=== PATIENT | male | born 1945 | race African-American/Black ===

== ENCOUNTER → 2016-12-24 | Outpatient (CLI) | payer MEDICARE, OTHER ==
[2014-04-19 15:00] VITALS: BP 124/71
[~2016-12-24] MED LIST: ALLO100T PO; AMLO10TA2 PO; ASPI-482 PO; ASPI-630 PO; COLC0.6T34 PO; GEMF600T3 PO; HYDR-2762 PO; HYDR-971 PO; INSU100C4 SQ; INSU100V SQ; INSU100V13 SQ; LISI2.5T PO; LOSA1TAB16 PO; Oxycodone Hcl/Acetaminophen PO; PRAV40TA2 PO; RIFA550T4 PO; SENN8.6T99 PO; VARD20TA2 PO; VARE1TAB21 PO
[2016-12-24 09:14] LABS: BASO % 1 % (0-3); EOS % 6 % (0-3); HEMATOCRIT 40.4 % (39.0-53.0); LYMPH # 0.9 x10^3/uL (1.0-4.8); LYMPH % 36 % (24-48); MEAN CORPUSCULAR HEMOGLOBIN 29 pg (25-35); MEAN CORPUSCULAR HGB CONC 35 g/dL (31-37); MEAN CORPUSCULAR VOLUME 84 fL (79-100); MONO % 16 % (0-9); NEUT % 41 % (31-73); PLATELET COUNT 322 x10^3/uL (140-400); RED CELL DISTRIBUTION WIDTH 13.7 % (11.5-14.5); WHITE BLOOD COUNT 2.6 x10^3/uL (4.0-11.0)
[2016-12-24 09:21] LABS: ALBUMIN 3.7 g/dL (3.4-5.0); CALCIUM 8.6 mg/dL (8.5-10.1); CREATININE 1.9 mg/dL (0.7-1.3); GFR 42.6; POTASSIUM 3.7 mmol/L (3.5-5.1)
[2016-12-24 09:39] LABS: INR 1.1 (0.8-1.1); PROTHROMBIN TIME PATIENT 13.3 SEC (11.7-14.0)
[2016-12-24 10:04] LABS: BILIRUBIN,URINE SMALL (NEG); GLUCOSE,URINE NEGATIVE (NEG); NITRITE,URINE NEGATIVE (NEG); PH,URINE 5.5; PROTEIN,URINE 30 mg/dL (NEG-TRACE)
[2016-12-24 10:10] LABS: BACTERIA,URINE FEW /HPF (0-FEW); RBC,URINE OCC /HPF (0-2); SQUAMOUS EPITHELIAL CELL,UR MANY /LPF
--- NOTE | 2016-12-24 13:19 | EKG ---
[facility] [address] [place] [address] Test Date: 2016-12-24 Test Time: 13:12:47 Pat Name: DAVID LOPEZ Department: Room: Gender: M [employer] Mk1 Operator: RUFINO : 1945 Requested By: JONO MOE Order Number: [id number] Reading MD: Measurements Intervals [place] Rate: 58 P: 50 PA: 166 QRS: -40 QRSD: 84 T: 56 QT: 426 QTc: 422 Interpretive Statements SINUS RHYTHM ABNORMAL LEFT AXIS DEVIATION LEFT ANTERIOR FASCICULAR BLOCK ABNORMAL ECG RI6.01 Compared to ECG 08/12/2013 07:58:27 Left-axis deviation now present Left anterior fascicular block now present Right-axis deviation no longer present
--- NOTE | 2016-12-24 18:00 | RAD ---
Chest, 2 views, 12/24/2016: History: Preop evaluation for hip surgery Comparison is made to a study from 08/12/2013. The heart size and pulmonary vascularity are normal. There is calcific plaquing of the aorta. No pulmonary infiltrates are seen. There is no evidence of pleural fluid. IMPRESSION: No acute cardiopulmonary abnormality is detected.
== END | disposition home or self-care (01) ==
LOC: SURGPAT 15:35
PROVIDERS: ATTEND Orthopaedic Surgery
DX: Z01.818 Encounter for other preprocedural examination (principal); E11.9 Type 2 diabetes mellitus without complications; I10 Essential (primary) hypertension
CPT/HCPCS: 36415; 71020; 80048; 81001; 82040; 85027; 85610; 85651; 85730; 87641; 93005

== ENCOUNTER 2017-01-08 08:54 | Inpatient (IN) | payer MEDICARE, OTHER ==
[2017-01-08] VITALS (8 sets, daily range): BP systolic 139–171; BP diastolic 68–96
[~2017-01-08] VITALS: Ht 182.9 cm; Wt 102.1 kg
[~2017-01-08 08:54] MED LIST changes: +CELECOXIB 200 MG CAPSULE. PO PRN; +HYDROcodone/APAP 7.5/325MG 1 TAB TABLET PO PRN; +HYDROmorphone 2 MG/ML VIAL IV PRN; +LIDOCAINE 1% 1 ML SYRINGE. ID PRN; +MORPHINE SULFATE 4 MG/ML DISP.SYRIN. IV PRN; +MORPHINE SULFATE 5 MG, KETOROLAC TROMETHAMINE 30 MG, ROPIVacaine 0.5% PF 60 ML, EPINEPH... INT ART ONE; +ONDANSETRON PF 4 MG/2 ML VIAL. IV PRN; +PROCHLORPERAZINE 10 MG/2 ML VIAL. IV PRN; +TRANEXAMIC ACID 1,000 MG in IV NS 50ML -- 1ST BAG INJ ONE; +TRANEXAMIC ACID 1,000 MG in IV NS 50ML -- 2ND BAG INJ ONE; +fentaNYL PF VIAL 100 MCG/2 ML VIAL IV PRN
[2017-01-08] MEDS: IV RINGERS,LACTATED 1000ML 1,000 ML IV SCH ×2 (09:52→15:19)
[2017-01-08 10:20] LABS: INR 1.2 (0.8-1.1); PROTHROMBIN TIME PATIENT 14.1 SEC (11.7-14.0)
[2017-01-08] MEDS ORDERED: ROCURONIUM 50 MG/5 ML VIAL. ONE (11:11)
[2017-01-08] MEDS ORDERED: fentaNYL PF VIAL 250 MCG/5 ML VIAL ONE (11:11)
[2017-01-08] MEDS ORDERED: DEXAMETHASONE SOD PHOS 20 MG/5 ML VIAL. ONE (12:51)
[2017-01-08] MEDS ORDERED: PROPOFOL 20 ML IV ONE (12:51)
[2017-01-08] MEDS ORDERED: LIDOCAINE 2% PF Vial for OR 5 ML VIAL. ONE (12:51)
[2017-01-08] MEDS ORDERED: ONDANSETRON PF 4 MG/2 ML VIAL. ONE ×2 (12:52→13:54)
[2017-01-08] MEDS ORDERED: SEVOFLURANE > 120 MINUTES. IH ONE (12:52)
[2017-01-08] MEDS ORDERED: fentaNYL PF VIAL 100 MCG/2 ML VIAL ONE ×2 (13:27→14:40)
[2017-01-08] MEDS ORDERED: GLYCOPYRROLATE 1 MG/5 ML VIAL. ONE (13:46)
[2017-01-08] MEDS ORDERED: NEOSTIGMINE 10 MG/10 ML VIAL. ONE (13:46)
[2017-01-08] MEDS: fentaNYL PF VIAL 100 MCG/2 ML VIAL IV PRN ×2 (15:00→15:16)
[2017-01-08] MEDS ORDERED: ZOLPIDEM 5 MG TABLET. PO PRN (15:15)
[2017-01-08] MEDS ORDERED: DEXTROSE 50% 25 GM / 50ML DISP.SYRIN. IV PRN (15:15)
[2017-01-08] MEDS ORDERED: MORPHINE SULFATE 4 MG/ML DISP.SYRIN. IV PRN ×2 (15:15)
[2017-01-08] MEDS ORDERED: PROCHLORPERAZINE 10 MG/2 ML VIAL. IV PRN (15:15)
[2017-01-08] MEDS ORDERED: PROCHLORPERAZINE 5 MG TABLET. PO PRN (15:15)
[2017-01-08] MEDS ORDERED: fentaNYL PF VIAL 100 MCG/2 ML VIAL IV PRN ×2 (15:15)
[2017-01-08] MEDS ORDERED: traMADol 50 MG TABLET PO PRN ×2 (15:15)
[2017-01-08] MEDS ORDERED: diphenhydrAMINE 50 MG/ML VIAL IV PRN (15:15)
[2017-01-08] MEDS ORDERED: ACETAMINOPHEN 325 MG TABLET. PO PRN (15:15)
[2017-01-08] MEDS ORDERED: 0.9 % SODIUM CHLORIDE 10 ML DISP.SYRIN. IV PRN (15:15)
[2017-01-08] MEDS ORDERED: CALCIUM CARBONATE 500 MG TAB.CHEW PO PRN (15:15)
[2017-01-08] MEDS ORDERED: HYDROcodone/APAP 10/325 1 TAB TABLET PO PRN (15:15)
--- NOTE | 2017-01-08 15:25 | PDOC ---
BRIEF OPERATIVE NOTE Date: Jan 08, 2017 Pre-Op Diagnosis djd right hip Post-Op Diagnosis right hip djd Procedure Performed right total hip arthroplasty Surgeon Lesli Foy Anesthesia Type: General Blood Loss 150cc Specimens Obtained femoral head to pathology Findings above Complications none JONO MOE MD Jan 08, 2017 15:25
[2017-01-08] MEDS ORDERED: WARFARIN 7.5 MG TABLET. PO ONE (16:00)
--- NOTE | 2017-01-08 16:40 | RAD ---
AP and lateral right hip radiograph 01/08/2017 Clinical history: Post right hip replacement. Portable AP digital radiograph of the lower pelvis to include both hips and and a crosstable lateral digital radiograph of the right hip were obtained. Comparison study is dated 11/30/2016. Surgical clips overlie the lower pelvis, unchanged. The patient is status post right BJORN. The prosthetic components are intact. No fracture or dislocation is seen. Moderate to severe degenerative changes are seen involving the left hip. Impression: Post right BJORN. No acute osseous abnormality is seen.
[2017-01-08] MEDS: FERROUS SULFATE 325 MG TABLET. PO SCH (18:04)
[2017-01-08] MEDS: oxyCODONE/APAP 5/325 1 TAB TABLET PO PRN (18:15)
[2017-01-08] MEDS: INSULIN ASPART 300 UNITS/3 ML INSULN.PEN SQ SCH (18:52)
[2017-01-08] MEDS: ATORVASTATIN CALCIUM 10 MG TABLET. PO SCH (21:17)
[2017-01-08] MEDS: rifAXIMin 550 MG TABLET PO SCH (21:17)
[2017-01-08] MEDS: CELECOXIB 200 MG CAPSULE. PO SCH (21:17)
[2017-01-08] MEDS: INSULIN DETEMIR 300 UNITS/3 ML INSULN.PEN. SQ SCH (21:20)
[2017-01-08] MEDS: IV DEXTROSE 5 %-0.45 % NACL 1,000 ML IV SCH (21:28)
[2017-01-08] MEDS: HYDROcodone/APAP 7.5/325MG 1 TAB TABLET PO PRN (23:18)
[2017-01-09 02:51] VITALS: BP 136/80
[2017-01-09] MEDS: IV DEXTROSE 5 %-0.45 % NACL 1,000 ML IV SCH ×2 (04:00→10:48)
--- NOTE | 2017-01-09 04:11 | ACF ---
Admission Forms Criteria PAIN MANAGEMENT GR Clinical Indications for Admission to Inpatient Care (Place 'X' for any and all applicable criteria): Hospital admission is needed for appropriate care of the patient because of 1 or more of the following are present (1)(2)(3)(4)(5): [X]I. Severe pain requiring acute inpatient management as indicated by 1 or more of the following (2)(5)(10): [X]a) Continuous or frequent (eg, every 2 to 4 hours) parenteral analgesics required [A] [ ]b) Necessity (ie, alternative approaches not effective) for analgesic regimen that can only be performed or initiated in inpatient setting [ ]II. Pain causing debilitation to the point of inability to function or be supported at any other level of care [ ]III. Severe side effects from pain medications as indicated by ANY ONE of the following (12)(13)(14)(15): [ ]a) Uncontrollable seizures [ ]b) Cardiac arrhythmias of immediate concern [ ]c) Dehydration that is severe or persistent [ ]d) Vomiting that is severe or persistent [ ]e) Altered mental status that is severe or persistent [ ]f) Obstipation with inadequate GI function to maintain nutrition The original [employer] content created by [employer] has been revised. The portions of the content which have been revised are identified through the use of italic text or in bold, and [employer] has neither reviewed nor approved the modified material. All other unmodified content is copyright [employer]. Please see references footnoted in the original [employer] edition 2016 Admission Criteria Met?: Yes BALAJI AHN Jan 09, 2017 04:11
[2017-01-09] MEDS: oxyCODONE/APAP 7.5/325 1 TAB TABLET PO PRN ×3 (04:29→20:43)
[2017-01-09 04:55] LABS: HEMATOCRIT 32.9 % (39.0-53.0); HEMOGLOBIN 11.1 g/dL (13.0-17.5)
[2017-01-09 05:19] LABS: INR 1.3 (0.8-1.1)
[2017-01-09] MEDS ORDERED: MAGNESIUM HYDROXIDE 2,400 MG/30 ML ORAL.SUSP. PO PRN (06:00)
[2017-01-09 06:22] VITALS: BP 135/74
[2017-01-09] MEDS: INSULIN ASPART 300 UNITS/3 ML INSULN.PEN SQ SCH ×3 (07:36→17:07)
[2017-01-09] MEDS: COLCHICINE 0.6 MG TABLET PO SCH (07:39)
[2017-01-09] MEDS: FERROUS SULFATE 325 MG TABLET. PO SCH ×2 (07:39→17:04)
[2017-01-09] MEDS: CELECOXIB 200 MG CAPSULE. PO SCH ×2 (07:39→20:42)
[2017-01-09] MEDS: rifAXIMin 550 MG TABLET PO SCH ×2 (07:40→21:00)
[2017-01-09] MEDS: SENNOSIDES/DOCUSATE 8.6/50MG TABLET. PO SCH (08:27)
[2017-01-09] MEDS: ASPIRIN ENTERIC COATED 81 MG TABLET.DR. PO SCH (08:27)
[2017-01-09] MEDS: MULTIVITAMIN with MINERAL TABLET. PO SCH (08:27)
[2017-01-09] MEDS: hydroCHLOROthiazide 12.5 MG CAPSULE PO SCH ×2 (08:27→17:04)
[2017-01-09] MEDS: ALLOPURINOL 100 MG TABLET. PO SCH (08:27)
[2017-01-09] MEDS: oxyCODONE/APAP 5/325 1 TAB TABLET PO PRN (08:29)
[2017-01-09] MEDS: LOSARTAN POTASSIUM 50 MG TABLET. PO SCH (09:00)
[2017-01-09 11:44] VITALS: BP 110/64
[2017-01-09] MEDS ORDERED: WARFARIN 5 MG TABLET. PO ONE (16:00)
[2017-01-09] MEDS ORDERED: BISACODYL 10 MG SUPP.RECT. PR PRN (16:00)
[2017-01-09 18:43] VITALS: BP 116/67
--- NOTE | 2017-01-09 19:38 | PDOC ---
PROGRESS NOTES Subjective Subjective Problems overnight: Very pleased with his pain relief and ability to ambulate really no significant current complaints pain well-controlled Objective Vital Signs Vital Signs Date Time Temp Pulse Resp B/P (MAP) Pulse Ox O2 Delivery O2 Flow Rate FiO2 01/09/17 18:43 98.9 79 20 116/67 (83) 97 Room Air 98.9 01/08/17 14:37 8 Physical Exam Dressing clean dry intact Hemovac drain intact leg lengths equal distal neurovascular status intact Labs Laboratory Tests Test 01/08/17 09:41 01/08/17 09:43 01/08/17 14:50 01/08/17 18:50 Glucose (Fingerstick) 138 mg/dL (70-99) 187 mg/dL (70-99) 196 mg/dL (70-99) Prothrombin Time 14.1 SEC (11.7-14.0) Prothromb Time International Ratio 1.2 (0.8-1.1) Activated Partial Thromboplast Time 30 SEC (24-38) Test 01/08/17 21:00 01/09/17 02:42 01/09/17 04:15 01/09/17 06:19 Glucose (Fingerstick) 148 mg/dL (70-99) 145 mg/dL (70-99) 138 mg/dL (70-99) Hemoglobin 11.1 g/dL (13.0-17.5) Hematocrit 32.9 % (39.0-53.0) Mean Corpuscular Hemoglobin Concent 34 g/dL (31-37) Prothrombin Time 15.0 SEC (11.7-14.0) Prothromb Time International Ratio 1.3 (0.8-1.1) Test 01/09/17 11:29 01/09/17 16:41 Glucose (Fingerstick) 133 mg/dL (70-99) 142 mg/dL (70-99) Laboratory Tests Test 01/08/17 21:00 01/09/17 02:42 01/09/17 04:15 01/09/17 06:19 Glucose (Fingerstick) 148 mg/dL (70-99) 145 mg/dL (70-99) 138 mg/dL (70-99) Hemoglobin 11.1 g/dL (13.0-17.5) Hematocrit 32.9 % (39.0-53.0) Mean Corpuscular Hemoglobin Concent 34 g/dL (31-37) Prothrombin Time 15.0 SEC (11.7-14.0) Prothromb Time International Ratio 1.3 (0.8-1.1) Test 01/09/17 11:29 01/09/17 16:41 Glucose (Fingerstick) 133 mg/dL (70-99) 142 mg/dL (70-99) Imaging Intraoperative and postop views show excellent positioning of a total hip arthroplasty Assessment Assessment POD# [1], S/P [right total hip arthroplasty] Problems: Plan Plan of Care Continue weightbearing as tolerated No hip precautions due to anterior approach Coumadin anticoagulation Home when medically stable JONO MOE MD Jan 09, 2017 19:38
[2017-01-09] MEDS: ATORVASTATIN CALCIUM 10 MG TABLET. PO SCH (20:42)
[2017-01-09] MEDS: INSULIN DETEMIR 300 UNITS/3 ML INSULN.PEN. SQ SCH (21:00)
--- NOTE | 2017-01-09 22:09 | HP ---
ADMIT DATE: 01/08/2017 CHIEF COMPLAINT: Right hip pain. HISTORY OF PRESENT ILLNESS: The patient is a 71-year-old male who had a fall off of roof in the latter part of 2013, began to have severe hip pain following that and has had progressive pain since our last visit about a year ago where he had significant degenerative changes present in the hip. He got limited decreasing relief from an intra-articular injection under fluoroscopy and wishes to proceed at this time with more definitive treatment of his symptoms as he is very limited in his activities of daily living, has severe pain on startup, inability to climb stairs and limited in his other activities. PAST MEDICAL HISTORY: Significant for hypertension, hypercholesterolemia, gout, diabetes mellitus. PAST SURGICAL HISTORY: Significant for a right kidney removal in 2010, prostatectomy in 2009. FAMILY HISTORY: Denies any significant family history. SOCIAL HISTORY: He is a former smoker, quit within about the past 6-12 months. Denies alcohol or drug use. MEDICATIONS: List is reviewed. ALLERGIES: He has no known drug allergies. REVIEW OF SYSTEMS: Denies any recent chest pain, shortness of breath, constitutional symptoms. PHYSICAL EXAMINATION: GENERAL: This is a pleasant, cooperative 71-year-old male, alert and oriented, in no acute distress. HEENT: Atraumatic, normocephalic. HEART: Regular rate and rhythm. LUNGS: Clear to auscultation bilaterally. ABDOMEN: Benign. EXTREMITIES: Examination of the right hip reveals decreased range of motion in all planes with pain on any extremes of range of motion attempted. IMAGING DATA: X-rays reveal severe degenerative changes present in the left hip with complete loss of his joint space. IMPRESSION: Right hip degenerative joint disease. TREATMENT PLAN: Based on his severe pain and limitations, he would like to proceed with total hip arthroplasty, having reviewed both in clinic and today. The risks, benefits, postoperative course of the procedure including the possibility of premature wear or loosening, nerve or blood vessel damage, leg length inequality, instability, infection, medical or other anesthetic complications among others. All his questions were answered. He will proceed today with total hip arthroplasty with [facility] to admission to follow. JONO MOE MD DR: JAKE/ruby JOB#: [id number] / [id number]
[2017-01-10] MEDS: IV DEXTROSE 5 %-0.45 % NACL 1,000 ML IV SCH
--- NOTE | 2017-01-10 01:53 | OP ---
DATE OF SURGERY: 01/08/2017 PREOPERATIVE DIAGNOSIS: Degenerative joint disease of right hip. POSTOPERATIVE DIAGNOSIS: Degenerative joint disease of right hip. PROCEDURE: Right total hip arthroplasty. SURGEON: Sotero Ballesteros M.D. MEDICAL APPOINTMENT SCHEDULER: Danii. ESTIMATED BLOOD LOSS: About 150 mL. COMPLICATIONS: None. OPERATIVE INDICATIONS: The patient is a 71-year-old male with severe pain and documented progressive degenerative changes, limitations of his activities of daily living as discussed in his preoperative history and physical and clinic notes. I had gone over with him previously the risks, benefits, postoperative course of the procedure including the possibility of nerve or blood vessel damage, leg length inequality, instability, infection, medical or other anesthetic complications among others. All his questions were answered. Consent was obtained and he agrees to proceed with operative evaluation and treatment. DESCRIPTION OF PROCEDURE: The patient was identified, procedure verified, patient placed in the supine position on the operating table. After adequate amounts of general endotracheal anesthesia were administered, he was placed in traction boots on the Linden fracture table and positioned and the right hip prepped and draped in standard sterile fashion. After timeout was performed, the patient and procedure identified and verified. Fluoroscopy was used to establish initial leg lengths with reference to the pubic rami. An incision was then made from just distal and lateral to the anterior superior iliac spine along the tensor fascia kay. The tensor fascia kay fascia was first divided and the tensor fascia muscle brought laterally exploiting the interval between the rectus femoris. The Aquamantys device was used to coagulate the circumflex vessels and the hip capsule was split in a T-fashion. Femoral neck cut was made with a reference cutting guide with a size 3 reference broach as templated. The femoral neck cut was augmented by a napkin ring type cut to aid in removal of the femoral head; however, the femoral head was quite tight and required splitting it to remove it in 2 halves. The acetabulum was then exposed. The contents of the fovea and the labrum were excised to allow good exposure. Successive size reaming was carried out up to a size 55 under fluoroscopic guidance and excellent bleeding bony surfaces of the acetabular wall were achieved. Thorough irrigation carried out with normal saline solution and a size 56 cluster hole acetabular component of [employer]hew hemispherical StikTite coated shell was placed in proper inclination and version per fluoroscopic guidance. A single superior screw was placed with excellent bite and a 40 mm highly crosslinked polyethylene standard liner was impacted into place. Attention was then turned to the femur, which was placed in maximum external rotation and capsular release was performed preserving the external rotators. Femoral canal was then prepared with a box osteotome and rat tail rasp and successive size broaches were placed and lateralized with a size 3 broach provided excellent fit and stability, and the fit and alignment checked under fluoroscopic guidance. The leg length and offset were thus reproduced with a lateralized component and a 0 neck length, 40 mm head trial, which was reduced and noted to be in excellent position. Excellent stability was maintained despite external rotation, extension and adduction. Trial femoral components were then removed. Leg placed in extension, external rotation, adduction. Thorough irrigation carried out in the femoral canal and a size 3 high offset ____ coated femoral component was tapped into place with excellent seating and stability noted. A +0 modular cobalt chromium head was tapped into place to engage the Hakeem taper and was reduced and provided equivalent leg length, offset and stability as noted in the trial fitting. Thorough irrigation again carried out with normal saline solution. The capsular structures were injected with intra-articular mixture. Capsule was closed with Ethibond suture. Fascia closure over a pain catheter and Hemovac drain with #1 Stratafix barbed suture, subcutaneous closure with buried Vicryl suture, subcuticular closure with barbed Monocryl suture. A ANGELA dressing was applied. The patient was returned to the recovery room in stable condition having tolerated the procedure well. Please note that first eyad Pemberton was present for the procedure and assisted in the prepping and draping and the skin closure. SOTERO BALLESTEROS MD DR: JAKE/ruby JOB#: [id number] / [id number] TAMI Terrell
[2017-01-10 05:48] VITALS: BP 122/73
[2017-01-10 05:50] LABS: HEMATOCRIT 33.1 % (39.0-53.0); HEMOGLOBIN 11.6 g/dL (13.0-17.5)
[2017-01-10 06:06] LABS: INR 1.2 (0.8-1.1); PROTHROMBIN TIME PATIENT 14.5 SEC (11.7-14.0)
[2017-01-10] MEDS: INSULIN ASPART 300 UNITS/3 ML INSULN.PEN SQ SCH ×3 (07:39→16:50)
[2017-01-10] MEDS: FERROUS SULFATE 325 MG TABLET. PO SCH ×2 (08:42→16:46)
[2017-01-10] MEDS: CELECOXIB 200 MG CAPSULE. PO SCH ×2 (08:42→21:00)
[2017-01-10] MEDS: ALLOPURINOL 100 MG TABLET. PO SCH (08:43)
[2017-01-10] MEDS: MULTIVITAMIN with MINERAL TABLET. PO SCH (08:43)
[2017-01-10] MEDS: ASPIRIN ENTERIC COATED 81 MG TABLET.DR. PO SCH (08:43)
[2017-01-10] MEDS: LOSARTAN POTASSIUM 50 MG TABLET. PO SCH (08:44)
[2017-01-10] MEDS: SENNOSIDES/DOCUSATE 8.6/50MG TABLET. PO SCH (08:46)
[2017-01-10] MEDS: HYDROcodone/APAP 7.5/325MG 1 TAB TABLET PO PRN ×2 (08:47→21:01)
[2017-01-10] MEDS: COLCHICINE 0.6 MG TABLET PO SCH (08:48)
[2017-01-10] MEDS: rifAXIMin 550 MG TABLET PO SCH ×2 (08:52→21:01)
--- NOTE | 2017-01-10 08:56 | PDOC ---
ORTHO PROGRESS NOTES Subjective Patient reports that he is doing well. pain is well controlled. weakness with hip flexion, but improving. ambulated this am around the unit without difficulty. Plans to DC home tomorrow with outpatient PT. No concerns Post-op Day: 2 (Right BJORN) Vitals Vital Signs Date Time Temp Pulse Resp B/P (MAP) Pulse Ox O2 Delivery O2 Flow Rate FiO2 01/10/17 08:44 84 122/73 01/10/17 05:48 98.2 20 97 Room Air 98.2 Labs Laboratory Tests Test 01/08/17 09:41 01/08/17 09:43 01/08/17 14:50 01/08/17 18:50 Glucose (Fingerstick) 138 mg/dL (70-99) 187 mg/dL (70-99) 196 mg/dL (70-99) Prothrombin Time 14.1 SEC (11.7-14.0) Prothromb Time International Ratio 1.2 (0.8-1.1) Activated Partial Thromboplast Time 30 SEC (24-38) Test 01/08/17 21:00 01/09/17 02:42 01/09/17 04:15 01/09/17 06:19 Glucose (Fingerstick) 148 mg/dL (70-99) 145 mg/dL (70-99) 138 mg/dL (70-99) Hemoglobin 11.1 g/dL (13.0-17.5) Hematocrit 32.9 % (39.0-53.0) Mean Corpuscular Hemoglobin Concent 34 g/dL (31-37) Prothrombin Time 15.0 SEC (11.7-14.0) Prothromb Time International Ratio 1.3 (0.8-1.1) Test 01/09/17 11:29 01/09/17 16:41 01/09/17 20:39 01/10/17 05:35 Glucose (Fingerstick) 133 mg/dL (70-99) 142 mg/dL (70-99) 114 mg/dL (70-99) Hemoglobin 11.6 g/dL (13.0-17.5) Hematocrit 33.1 % (39.0-53.0) Mean Corpuscular Hemoglobin Concent 35 g/dL (31-37) Prothrombin Time 14.5 SEC (11.7-14.0) Prothromb Time International Ratio 1.2 (0.8-1.1) Test 01/10/17 06:26 Glucose (Fingerstick) 132 mg/dL (70-99) Laboratory Tests Test 01/09/17 11:29 01/09/17 16:41 01/09/17 20:39 01/10/17 05:35 Glucose (Fingerstick) 133 mg/dL (70-99) 142 mg/dL (70-99) 114 mg/dL (70-99) Hemoglobin 11.6 g/dL (13.0-17.5) Hematocrit 33.1 % (39.0-53.0) Mean Corpuscular Hemoglobin Concent 35 g/dL (31-37) Prothrombin Time 14.5 SEC (11.7-14.0) Prothromb Time International Ratio 1.2 (0.8-1.1) Test 01/10/17 06:26 Glucose (Fingerstick) 132 mg/dL (70-99) Notes Patient is awake and alert sitting up in chair. Breathing nonlabored, no acute distress. Incision covered with dressing, intact and without s/s of infection. N /V intact RLE Problems: (1) Degenerative joint disease of right hip Assessment and Plan Continue PT/OT, WBAT anticoagulation per pharmacy pain controlled anticipate DC home tomorrow with outpatient PT Problem Qualifiers (1) Degenerative joint disease of right hip: Osteoarthritis type: primary Qualified Codes: M16.11 - Unilateral primary osteoarthritis, right hip FREDDY GALEAS APRN Jan 10, 2017 08:56
[2017-01-10] MEDS ORDERED: WARFARIN 7.5 MG TABLET. PO ONE (16:00)
--- NOTE | 2017-01-10 17:13 | PATHOLOGY ---
PATHOLOGY REPORT * * * * * * * * FINAL DIAGNOSIS: Femoral head, right anterior total hip arthroplasty: - Advanced degenerative arthritis. (JPM:keenan; 01/10/2017) REPORT ELECTRONICALLY SIGNED BY: Tommie Woody M.D. DATE/TIME: 01/10/2017 17:12 * * * * * * * * GROSS PATHOLOGY: Received in formalin labeled "David Robison, right hip bone and tissue," is a femoral head measuring 5.5 x 5.5 x 4.8 cm in greatest dimensions. The articular surface is light mccormack and granular in appearance with focal eburnation. Sectioning the bone reveals light mccormack cut surfaces. Cement Tile Maker tissue is submitted in cassette A1, following decalcification. (CAA; 01/09/2017) INITIAL CPT CODE(S): A; 18529, 55518 Professional services [place] [place] [address] Technical services performed by [facility] at [address] [place] [address], [facility] [address] [address]. SPECIMEN(S) RECEIVED: A.Right hip bone and tissue CLINICAL HISTORY: DJD PATIENT: DAVID ROBISON /AGE: 7 1945 (Age: 71) PATIENT #: [id number] ALT CASE #: SPECIMEN COLLECTION DATE: 01/08/2017 SPECIMEN RECEIVED DATE: 01/08/2017 [facility] - [address] [place] [address] - PHONE: [phone] * * * END OF REPORT * * *
[2017-01-10 18:16] VITALS: BP 118/67
[2017-01-10] MEDS: ATORVASTATIN CALCIUM 10 MG TABLET. PO SCH (21:00)
[2017-01-10] MEDS: INSULIN DETEMIR 300 UNITS/3 ML INSULN.PEN. SQ SCH (21:06)
[2017-01-11 06:00] VITALS: BP 135/79
[2017-01-11 06:47] LABS: HEMATOCRIT 31.1 % (39.0-53.0); HEMOGLOBIN 10.8 g/dL (13.0-17.5)
[2017-01-11 06:59] LABS: INR 1.4 (0.8-1.1); PROTHROMBIN TIME PATIENT 16.1 SEC (11.7-14.0)
[2017-01-11] MEDS: ALLOPURINOL 100 MG TABLET. PO SCH (07:46)
[2017-01-11] MEDS: hydroCHLOROthiazide 12.5 MG CAPSULE PO SCH (07:46)
[2017-01-11] MEDS: CELECOXIB 200 MG CAPSULE. PO SCH (07:46)
[2017-01-11] MEDS: SENNOSIDES/DOCUSATE 8.6/50MG TABLET. PO SCH (07:46)
[2017-01-11] MEDS: MULTIVITAMIN with MINERAL TABLET. PO SCH (07:46)
[2017-01-11] MEDS: COLCHICINE 0.6 MG TABLET PO SCH (07:46)
[2017-01-11] MEDS: FERROUS SULFATE 325 MG TABLET. PO SCH (07:46)
[2017-01-11] MEDS: ASPIRIN ENTERIC COATED 81 MG TABLET.DR. PO SCH (07:46)
[2017-01-11] MEDS: rifAXIMin 550 MG TABLET PO SCH (07:49)
[2017-01-11] MEDS: INSULIN ASPART 300 UNITS/3 ML INSULN.PEN SQ SCH ×2 (07:49→12:11)
[2017-01-11] MEDS: HYDROcodone/APAP 7.5/325MG 1 TAB TABLET PO PRN ×2 (09:54→14:27)
[2017-01-11] MEDS: LOSARTAN POTASSIUM 50 MG TABLET. PO SCH (09:55)
[2017-01-11 09:56] VITALS: BP 120/73
[2017-01-11] MEDS ORDERED: FERR-26 PO (10:01)
[2017-01-11] MEDS ORDERED: HYDR-2762 PO (10:02)
[2017-01-11] MEDS ORDERED: WARF7.5T48 PO (11:16)
[2017-01-11] MEDS ORDERED: WARFARIN 7.5 MG TABLET. PO ONE (12:00)
[2017-01-11 14:47] VITALS: BP 126/87
--- NOTE | 2017-01-12 12:10 | DS ---
DATE OF DISCHARGE: 01/11/2017 PRINCIPAL DIAGNOSIS: Degenerative joint disease and pain of right hip. PROCEDURE: Right total hip arthroplasty. ACTIVITY: Includes weightbearing as tolerated. No total hip precautions due to anterior approach. DISCHARGE INSTRUCTIONS: Report any redness, drainage, fever, chills, uncontrolled pain or other problems. Follow up with Dr. Ballesteros in 2 weeks. DISCHARGE MEDICATIONS: Include [place] 7.5 one p.o. q. 6 hours p.r.n., Coumadin as directed by anticoagulation clinic. Resume preoperative home medications. BRIEF DESCRIPTION OF HOSPITAL COURSE: The patient underwent an uncomplicated right total hip arthroplasty. Even on day 1, noted that he was getting around much better than expected, only muscular related pain, very pleased with his progress overall and remained medically stable throughout, doing well with physical therapy. His only major complaint was that he noted that the Aure drain would bother him and wake him up when it activated intermittently and was therefore changed out for an Aquacel dressing, otherwise did very well with physical therapy, was discharged home in stable condition with planned outpatient physical therapy on discharge. JONO BALLESTEROS MD DR: JAKE/ruby JOB#: [id number] / [id number]
== END 2017-01-11 15:45 | disposition home or self-care (01) | DRG 470 ==
LOC: OPSVCIP 08:54 → 4 SOUTHEST 16:40
PROVIDERS: ADMIT Orthopaedic Surgery; ATTEND Orthopaedic Surgery
PROC: 0SR902Z Replacement of Right Hip Joint with Metal on Polyethylene Synthetic Substitute, Open Approach (ICD-10-PCS; principal; 2017-01-09)
DX: M16.11 Unilateral primary osteoarthritis, right hip (principal); I10 Essential (primary) hypertension; E78.00 Pure hypercholesterolemia, unspecified; M10.9 Gout, unspecified; E11.9 Type 2 diabetes mellitus without complications; Z90.5 Acquired absence of kidney; Z90.79 Acquired absence of other genital organ(s); Z87.891 Personal history of nicotine dependence
CPT/HCPCS: 36415; 73501; 76000; 82962; 85014; 85018; 85610; 85730; 86850; 86900; 86901; 88304; 88311; C1713; C1887; J0171; J0690; J1100; J1815; J1885; J2001; J2270; J2405; J2704; J2710; J2795; J3010; J3490; J7030; J7120; 97116; 97150; 97530; 97535

== ENCOUNTER → 2017-02-21 | Outpatient (CLI) | payer MEDICARE, OTHER ==
[~2017-02-21] MED LIST changes: +BUPIVACAINE MPF 0.5% 10 ML VIAL for KCIC. IJ ONE; -CELECOXIB 200 MG CAPSULE. PO PRN; +FERR-26 PO; -HYDROcodone/APAP 7.5/325MG 1 TAB TABLET PO PRN; -HYDROmorphone 2 MG/ML VIAL IV PRN; +IOHEXOL 300 MG/ML 50 ML VIAL. INT ART ONE; -LIDOCAINE 1% 1 ML SYRINGE. ID PRN; +LIDOCAINE 1% Multi-Dose 20 ML VIAL. ID ONE; -MORPHINE SULFATE 4 MG/ML DISP.SYRIN. IV PRN; -MORPHINE SULFATE 5 MG, KETOROLAC TROMETHAMINE 30 MG, ROPIVacaine 0.5% PF 60 ML, EPINEPH... INT ART ONE; -ONDANSETRON PF 4 MG/2 ML VIAL. IV PRN; -PROCHLORPERAZINE 10 MG/2 ML VIAL. IV PRN; -TRANEXAMIC ACID 1,000 MG in IV NS 50ML -- 1ST BAG INJ ONE; -TRANEXAMIC ACID 1,000 MG in IV NS 50ML -- 2ND BAG INJ ONE; +WARF7.5T48 PO; -fentaNYL PF VIAL 100 MCG/2 ML VIAL IV PRN; +methylPREDNISolone ACETATE 40 MG/ML VIAL. INT ART ONE
--- NOTE | 2017-02-21 13:41 | KCIC ---
Examination: Left hip steroid injection COMPARISON: None available HISTORY: History of chronic left hip pain COMPARISON: None available TECHNIQUE: Patient was brought to fluoroscopic suite. Patient was explained the procedure. Informed consent was obtained after explaining the risks and benefits to the patient. The region of the left hip was prepped and draped in sterile fashion. Local anesthesia was achieved with 1 percent lidocaine. A 22-gauge spinal needle was advanced to the left hip joint without difficulty. The stylet was removed. Following negative aspiration , an injection of 4 cc of Omnipaque 300, 4 cc of lidocaine, 4 cc of Marcaine and 80 mg of Depo-Medrol was injected. The needle was removed. No immediate complications. Total fluoroscopic time 14 seconds. Fluoroscopy scopic images 1. IMPRESSION: Successful left hip steroid injection without complications. Electronically signed by: Jose David Toro MD (02/21/2017 1:38 PM) [facility]
== END | disposition home or self-care (01) ==
LOC: KCIC 12:14
PROVIDERS: ATTEND Nurse Practitioner Family
DX: M25.552 Pain in left hip (principal); G89.29 Other chronic pain
CPT/HCPCS: 20610; 77002; J1030; Q9967

== ENCOUNTER → 2017-11-28 | Outpatient (CLI) | payer MEDICARE, OTHER ==
[~2017-11-28] MED LIST changes: -ALLO100T PO; -AMLO10TA2 PO; -ASPI-482 PO; -ASPI-630 PO; -BUPIVACAINE MPF 0.5% 10 ML VIAL for KCIC. IJ ONE; -COLC0.6T34 PO; +CONTRAST GIVEN. MC; -FERR-26 PO; -GEMF600T3 PO; -HYDR-2762 PO; -HYDR-971 PO; -INSU100C4 SQ; -INSU100V SQ; -INSU100V13 SQ; -IOHEXOL 300 MG/ML 50 ML VIAL. INT ART ONE; -LIDOCAINE 1% Multi-Dose 20 ML VIAL. ID ONE; -LISI2.5T PO; -LOSA1TAB16 PO; -Oxycodone Hcl/Acetaminophen PO; -PRAV40TA2 PO; -RIFA550T4 PO; -SENN8.6T99 PO; -VARD20TA2 PO; -VARE1TAB21 PO; -WARF7.5T48 PO; -methylPREDNISolone ACETATE 40 MG/ML VIAL. INT ART ONE
[2017-11-28] MEDS: LIDOCAINE 1% Multi-Dose 20 ML VIAL. ID (13:33)
[2017-11-28] MEDS: BUPIVACAINE MPF 0.5% 10 ML VIAL for KCIC. IJ (13:33)
[2017-11-28] MEDS: IOHEXOL 300 MG/ML 50 ML VIAL. INT ART (13:33)
[2017-11-28] MEDS: methylPREDNISolone ACETATE 40 MG/ML VIAL. INT ART (13:33)
== END | disposition home or self-care (01) ==
LOC: KCIC 13:13
DX: M25.552 Pain in left hip (principal); G89.29 Other chronic pain; E78.00 Pure hypercholesterolemia, unspecified; I10 Essential (primary) hypertension; Z90.49 Acquired absence of other specified parts of digestive tract; Z85.46 Personal history of malignant neoplasm of prostate; Z90.79 Acquired absence of other genital organ(s); Z90.5 Acquired absence of kidney; Z85.528 Personal history of other malignant neoplasm of kidney; M10.9 Gout, unspecified; E11.9 Type 2 diabetes mellitus without complications; Z87.891 Personal history of nicotine dependence; Z82.49 Family history of ischemic heart disease and other diseases of the circulatory system; Z83.3 Family history of diabetes mellitus; Z79.84 Long term (current) use of oral hypoglycemic drugs
CPT/HCPCS: 20610; 77002; J1030; Q9967

== ENCOUNTER → 2018-01-16 | Outpatient (CLI) | payer MEDICARE, OTHER ==
[~2018-01-16] MED LIST changes: +ALLO100T PO; +AMLO10TA2 PO; +ASPI-482 PO; +ASPI-630 PO; +COLC0.6T34 PO; -CONTRAST GIVEN. MC; +FERR325T14 PO; +GEMF600T3 PO; +HYDR-2762 PO; +HYDR-971 PO; +INSU100C4 SQ; +INSU100V SQ; +INSU100V13 SQ; +IOHEXOL 240 MG/ML 50ML VIAL. PO ONE; +IOHEXOL 300 MG/ML 100ML VIAL. IV ONE; +LISI2.5T PO; +LOSA1TAB19 PO; +Oxycodone Hcl/Acetaminophen PO; +PRAV40TA2 PO; +RIFA550T4 PO; +SENN8.6T99 PO; +VARD20TA2 PO; +VARE1TAB21 PO; +WARF7.5T48 PO
--- NOTE | 2018-01-16 17:35 | KCIC ---
Exam: CT abdomen and pelvis with IV and oral contrast CLINICAL HISTORY: Diverticulitis. Abdominal pain. COMPARISON: none TECHNIQUE: CT of the abdomen and pelvis following the administration of 98 mL of Omnipaque 300 intravenous contrast. Oral contrast was administered. Coronal and sagittal reformatted images were generated. ---PQRS compliance statement - One or more of the following individualized dose reduction techniques were utilized for this study: 1. Automated exposure control 2. Adjustment of the mA and/or kV according to patient size 3. Use of iterative reconstruction technique--- FINDINGS: A 9 mm left lower lobe lung nodule is seen (image 10). ABDOMEN AND PELVIS: No focal liver lesion. Cholecystectomy clips are seen. The spleen is unremarkable. Pancreas and adrenal glands are unremarkable. There has been a right nephrectomy. No left renal lesion. No left hydronephrosis. No abdominal lymphadenopathy by size criteria although a prominent portacaval lymph node measures 1.1 x 0.8 cm (image 28). Atherosclerotic calcifications of aorta are seen. Mural thrombus is seen throughout the aorta which is normal in caliber. Colonic diverticulosis without evidence of acute diverticulitis. Moderate colonic stool content. No evidence of bowel obstruction. No small or large bowel dilatation. No abdominal or pelvic ascites. Small fat-containing periumbilical hernia is seen. Changes of prostatectomy are seen with surgical clips. Changes of penile implant are noted with reservoir in the left lower pelvis. Mild fascial thickening and fatty infiltration is seen adjacent to the reservoir. No definite aggressive osseous lesion is seen. Right total hip arthroplasty changes are noted. IMPRESSION: 1. Colonic diverticulosis without evidence of acute diverticulitis. 2. A 9 mm left lower lobe lung nodule is seen (image 10). Follow-up CT in 3 months and/or PET/CT is recommended. 3. No thoracic, abdominal or pelvic lymphadenopathy by size criteria. 4. Changes of penile implant with reservoir within the left lower quadrant. Fatty infiltration and fascial thickening is seen adjacent to the reservoir, possibly postsurgical. Associated inflammatory process is not excluded. Electronically signed by: Sandor Wu MD (01/16/2018 5:31 PM) [facility]
== END | disposition home or self-care (01) ==
LOC: KCIC CT 12:37
PROVIDERS: ATTEND Internal Medicine Gastroenterology
DX: K57.30 Diverticulosis of large intestine without perforation or abscess without bleeding (principal); R91.1 Solitary pulmonary nodule; I70.0 Atherosclerosis of aorta; I12.9 Hypertensive chronic kidney disease with stage 1 through stage 4 chronic kidney disease, or unspecified chronic kidney disease; E11.22 Type 2 diabetes mellitus with diabetic chronic kidney disease; N18.3 Chronic kidney disease, stage 3 (moderate); E78.00 Pure hypercholesterolemia, unspecified; M19.90 Unspecified osteoarthritis, unspecified site; Z90.5 Acquired absence of kidney; Z87.891 Personal history of nicotine dependence; Z85.46 Personal history of malignant neoplasm of prostate
CPT/HCPCS: 74177; 82565; Q9966; Q9967

== ENCOUNTER → 2018-02-04 | Outpatient (CLI) | payer MEDICARE, OTHER ==
[~2018-02-04] MED LIST changes: -AMLO10TA2 PO; +AMLO10TA6 PO; +COLC0.6C PO; +DICY10CA3 PO; -GEMF600T3 PO; +GEMF600T4 PO; +INSU100I30 SQ; -IOHEXOL 240 MG/ML 50ML VIAL. PO ONE; -IOHEXOL 300 MG/ML 100ML VIAL. IV ONE; +SENN1TAB9 PO
[2018-02-04 13:31] LABS: ALBUMIN 3.5 g/dL (3.4-5.0); CALCIUM 8.7 mg/dL (8.5-10.1); CREATININE 1.7 mg/dL (0.7-1.3); GFR 48.3; POTASSIUM 4.3 mmol/L (3.5-5.1)
[2018-02-04 13:32] LABS: BASO % 1 % (0-3); EOS # 0.1 x10^3/uL (0.0-0.7); EOS % 5 % (0-3); HEMATOCRIT 40.7 % (39.0-53.0); HEMOGLOBIN 13.9 g/dL (13.0-17.5); LYMPH # 0.8 x10^3/uL (1.0-4.8); LYMPH % 32 % (24-48); MEAN CORPUSCULAR HEMOGLOBIN 29 pg (25-35); MEAN CORPUSCULAR HGB CONC 34 g/dL (31-37); MEAN CORPUSCULAR VOLUME 86 fL (79-100); MONO # 0.3 x10^3/uL (0.0-1.1); MONO % 11 % (0-9); NEUT # 1.3 x10^3uL (1.8-7.7); NEUT % 50 % (31-73); PLATELET COUNT 271 x10^3/uL (140-400); RED BLOOD COUNT 4.71 x10^6/uL (4.30-5.70); RED CELL DISTRIBUTION WIDTH 13.7 % (11.5-14.5); WHITE BLOOD COUNT 2.6 x10^3/uL (4.0-11.0)
--- NOTE | 2018-02-04 13:45 | EKG ---
[facility] [address] [place] [address] Test Date: 2018-02-04 Test Time: 12:51:25 Pat Name: DAVID LOPEZ Department: Room: Gender: M [employer] Operator: STAN : 1945 Requested By: JONO MOE Order Number: [id number] Reading MD: Iglesia Guevara MD Measurements Intervals [place] Rate: 53 P: 38 LA: 170 QRS: -24 QRSD: 74 T: 25 QT: 410 QTc: 387 Interpretive Statements SINUS BRADYCARDIA NON-SPECIFIC ST/T CHANGES Electronically Signed On 02-05-2018 2:26:15 CDT by Iglesia Guevara MD
[2018-02-04 13:49] LABS: PROTHROMBIN TIME PATIENT 12.7 SEC (11.7-14.0)
[2018-02-04 14:10] LABS: BILIRUBIN,URINE NEGATIVE (NEG); CLARITY,URINE CLEAR; COLOR,URINE YELLOW; NITRITE,URINE NEGATIVE (NEG); PH,URINE 5.5; PROTEIN,URINE 100 mg/dL (NEG-TRACE)
[2018-02-04 14:17] LABS: RBC,URINE 0 /HPF (0-2)
[2018-02-04 14:18] LABS: BACTERIA,URINE 0 /HPF (0-FEW); SQUAMOUS EPITHELIAL CELL,UR FEW /LPF; WBC,URINE 0 /HPF (0-4)
--- NOTE | 2018-02-04 16:35 | RAD ---
AP and Lateral Views of the Chest 02/04/2018 1:07 PM Indication: PRE OP LEFT HIP REPLACEMENT ON 02/11/18 Comparison: None Findings: There is no focal consolidation or infiltrate identified. The cardiomediastinal silhouette is within normal limits. There is no evidence of pneumothorax or pleural effusion. No acute osseous abnormalities are identified. Impression: No evidence of acute cardiopulmonary process. Electronically signed by: Joo Cardenas MD (02/04/2018 4:32 PM) [facility]
[2018-02-05 01:12] LABS: HEMOGLOBIN A1C 6.8 % (4.8-5.6)
== END | disposition home or self-care (01) ==
LOC: SURGPAT 12:40
PROVIDERS: ATTEND Orthopaedic Surgery
DX: Z01.818 Encounter for other preprocedural examination (principal); I12.9 Hypertensive chronic kidney disease with stage 1 through stage 4 chronic kidney disease, or unspecified chronic kidney disease; E11.22 Type 2 diabetes mellitus with diabetic chronic kidney disease; N18.3 Chronic kidney disease, stage 3 (moderate); E78.00 Pure hypercholesterolemia, unspecified; Z85.828 Personal history of other malignant neoplasm of skin; Z87.891 Personal history of nicotine dependence; Z85.46 Personal history of malignant neoplasm of prostate; Z90.79 Acquired absence of other genital organ(s); Z90.49 Acquired absence of other specified parts of digestive tract; Z83.3 Family history of diabetes mellitus; Z82.49 Family history of ischemic heart disease and other diseases of the circulatory system
CPT/HCPCS: 36415; 71046; 80048; 81001; 82040; 83036; 85025; 85610; 85651; 85730; 87641; 93005

== ENCOUNTER → 2018-05-15 | Outpatient (CLI) | payer MEDICARE, OTHER ==
[2018-02-14 08:28] VITALS: BP 138/76
[~2018-05-15] MED LIST changes: +AMLO5TAB7 PO; +ASPI325T8 PO; +CLOP75TA PO; -GEMF600T4 PO; +GEMF600T8 PO; -HYDR-2762 PO; +HYDR-2765 PO; +HYDR-3164 PO; -HYDR-971 PO; +INSU100V8 SQ; +IOHEXOL 300 MG/ML 100ML VIAL. IV ONE; +LOSA-73 PO; +TRAM50TA PO; +WARF6TAB49 PO
--- NOTE | 2018-05-15 11:44 | KCIC ---
PQRS Compliance statement: One or more of the following individualized dose reduction techniques were utilized for this examination: 1. Automated exposure control. 2. Adjustment of the mA and/or kV according to patient size. 3. Use of iterative reconstruction technique. Indication:Lung nodule follow-up. TECHNIQUE: CT chest with IV contrast with multiplanar reformats. COMPARISON: CT abdomen pelvis from 01/16/2018 FINDINGS: Heart is normal in size. No pericardial or pleural effusion. Mild atherosclerotic disease of the aortic arch. No enlarged axillary or mediastinal lymphadenopathy. Calcified subcarinal lymph node is seen. No hilar adenopathy. Central airways are patent. Stable 9 mm nodule is seen in the left lower lobe. 3 mm nodule in the lateral aspect of the right upper lobe (series 2 image 55). Centimeter nodule in the medial aspect of the right middle lobe (series 2 image 126). Diffuse hepatic steatosis. Otherwise, visualized sections through the liver, spleen, adrenals, pancreas within normal limits. Status post right nephrectomy. No suspicious bony lesion. IMPRESSION: Total 3 pulmonary nodules as described above. Follow-up CT just in 4-6 months recommended. Electronically signed by: Giovanni Shaw DO (05/15/2018 11:40 AM) [facility]
== END | disposition home or self-care (01) ==
LOC: KCIC CT 09:13
PROVIDERS: ATTEND Family Medicine
DX: R91.8 Other nonspecific abnormal finding of lung field (principal); K76.0 Fatty (change of) liver, not elsewhere classified; I70.0 Atherosclerosis of aorta; R91.1 Solitary pulmonary nodule; R59.0 Localized enlarged lymph nodes; E11.9 Type 2 diabetes mellitus without complications; I10 Essential (primary) hypertension; Z79.01 Long term (current) use of anticoagulants; Z90.5 Acquired absence of kidney; Z87.891 Personal history of nicotine dependence
CPT/HCPCS: 71260; 82565; Q9967

== ENCOUNTER → 2018-09-02 | Day surgery (SDC) | payer MEDICARE, OTHER ==
[~2018-09-02] MED LIST changes: -AMLO10TA6 PO; +AMLO10TA8 PO; +AMLO5TAB10 PO; -AMLO5TAB7 PO; +HYDR-2761 PO; +HYDR-2869 PO; -IOHEXOL 300 MG/ML 100ML VIAL. IV ONE; +IV RINGERS,LACTATED 1000ML 1,000 ML IV SCH; +LIDOCAINE 2% PF 5 ML VIAL. ONE; +PROPOFOL 40 ML IV ONE; +SENN-162 PO; -SENN1TAB9 PO; +WHEA1POW8 PO
[2018-09-02 11:42] VITALS: BP 131/64
--- NOTE | 2018-09-03 15:07 | PATHOLOGY ---
[facility] Accession Number: [id number] . 01 Material submitted: . PART A: DESCENDING COLON POLYP PART B: TRANSVERSE COLON POLYP PART C: SIGMOID POLYP . 01 Clinical history: . Screening . 02 Diagnosis: A. Colon biopsy, descending colon polyp: - Tubular adenoma. . B. Colon biopsies, transverse colon polyp: - Sessile serrated polyp / adenoma. . C. Colon biopsies, sigmoid polyp: - Hyperplastic polyps. . (JP:mm; 09/03/2018) [facility]/09/03/2018 . 02 Comment: There is no high grade dysplasia or evidence of malignancy. . (JPM:mm; 09/03/2018) . 02 Electronically signed: . Tommie Woody MD, Pathologist NPI- [id number] . 01 Gross description: . A. The specimen is received in formalin, labeled "Ricki, Scott, descending colon polyp", is a mccormack polypoid, rubbery tissue measuring 0.3 x 0.2 x 0.2 cm, entirely submitted in A1. . B. The specimen is received in formalin, labeled "Ricki, Scott, transverse colon polyp", are few mccormack soft tissues measuring 0.7 x 0.4 x 0.1 cm in aggregate, entirely submitted in B1. . C. The specimen is received in formalin, labeled "Ricki, Scott, sigmoid polyp", are 2 mccormack tissues measuring 0.1 cm and a 0.2 cm in greatest dimension, entirely submitted in C1. ([facility]; 09/02/2018) [facility] . 02 Pathologist provided ICD-10: D12.4, D12.3, K63.5 . 02 CPT . 318076, 759424, 701010 Specimen Comment: A courtesy copy of this report has been sent to Specimen Comment: [phone], . Specimen Comment: Report sent to / DR ROMO Performed at: 01 [facility] [address] [facility] [address], [place] [id number] MD Calvin Young MD Phone: [phone] Performed at: 02 [facility] [address] [place], [place] [id number] MD Tommie Woody MD Phone: [phone]
== END | disposition home or self-care (01) ==
LOC: SURG 09:08
PROVIDERS: ATTEND Internal Medicine
DX: D12.4 Benign neoplasm of descending colon (principal); D12.3 Benign neoplasm of transverse colon; K63.5 Polyp of colon; K57.30 Diverticulosis of large intestine without perforation or abscess without bleeding; K64.0 First degree hemorrhoids; K64.4 Residual hemorrhoidal skin tags; I10 Essential (primary) hypertension; E78.5 Hyperlipidemia, unspecified; M10.9 Gout, unspecified; Z86.73 Personal history of transient ischemic attack (TIA), and cerebral infarction without residual deficits; Z79.82 Long term (current) use of aspirin; Z85.46 Personal history of malignant neoplasm of prostate; Z90.5 Acquired absence of kidney; Z83.3 Family history of diabetes mellitus; Z82.49 Family history of ischemic heart disease and other diseases of the circulatory system; Z82.3 Family history of stroke; Z87.891 Personal history of nicotine dependence; Z72.89 Other problems related to lifestyle; Z79.899 Other long term (current) drug therapy; Z96.643 Presence of artificial hip joint, bilateral
CPT/HCPCS: 45380; 45385; 88305; J2001; J2704